=== PATIENT | male | born 1985 | race Two or more races ===

== ENCOUNTER 2020-08-25 11:44 | Emergency (ER) | payer OTHER ==
[~2020-08-25 11:44] MED LIST: AMOXICILLIN500 M1 PO; HYDROCODON-ACE1 EAC4 PO; MORPHINE SULFAT15 M1 PO; ZOFRAN4 MG PO
[2020-08-25 13:49] LABS: HEMOGLOBIN 14.3 gm/dl (14.0-17.5); RED BLOOD COUNT 5.13 M/UL (4.20-5.50); WHITE BLOOD COUNT 9.7 K/UL (4.5-11.0)
[2020-08-25 14:21] LABS: BUN/CREATININE RATIO 23 (0-10)
[2020-08-25] MEDS ORDERED: CLINDAMYCIN HC300 MG PO (17:47)
== END 2020-08-25 18:06 | disposition home or self-care (01) ==
LOC: ER1 11:44
PROVIDERS: Physician Assistant Medical
DX: L03.211 Cellulitis of face (principal); K08.89 Other specified disorders of teeth and supporting structures; J45.909 Unspecified asthma, uncomplicated; F17.210 Nicotine dependence, cigarettes, uncomplicated
CPT/HCPCS: 70487; 80053; 83605; 85025; 87040; 96365; 96375; 99284; J7120; Q9967

== ENCOUNTER → 2021-06-12 | Outpatient (CLI) | payer OTHER ==
[~2021-06-12] MED LIST changes: +CLINDAMYCIN HC300 MG PO
== END ==
LOC: KOH-I 09:54
DX: R10.84 Generalized abdominal pain (principal); K59.00 Constipation, unspecified
CPT/HCPCS: 74018

== ENCOUNTER 2022-03-26 20:41 | Emergency (ER) | payer OTHER ==
[2022-03-26 21:46] LABS: HEMOGLOBIN 14.3 gm/dl (14.0-17.5); RED BLOOD COUNT 4.95 M/UL (4.20-5.50); WHITE BLOOD COUNT 7.6 K/UL (4.5-11.0)
[2022-03-26 22:20] LABS: BUN/CREATININE RATIO 13 (0-10)
== END 2022-03-27 00:40 | disposition home or self-care (01) ==
LOC: ER1 20:41
PROVIDERS: Emergency Medicine
DX: U07.1 COVID-19 (principal); Z90.89 Acquired absence of other organs; Z88.8 Allergy status to other drugs, medicaments and biological substances
CPT/HCPCS: 0240U; 71046; 80053; 81001; 83605; 83690; 83735; 84100; 85025; 87040; 87081; 87086; 87880; 93005; 96374; 96375; 99284; J1885; J2405